=== PATIENT | male | born 1995 | race Caucasian/White ===

== ENCOUNTER 2021-11-25 02:15 | Emergency (ER) | payer SELFPAY ==
[~2021-11-25] VITALS: Ht 172.7 cm; Wt 68.0 kg
[2021-11-25 02:17] VITALS: BP 103/56
== END 2021-11-25 03:19 | disposition home or self-care (01) ==
LOC: ER 02:37
DX: T40.711A Poisoning by cannabis, accidental (unintentional), initial encounter (principal); X58.XXXA Exposure to other specified factors, initial encounter; F12.10 Cannabis abuse, uncomplicated
CPT/HCPCS: 99283